=== PATIENT | male | born 1940 | race Caucasian/White ===

== ENCOUNTER → 2017-06-23 | Outpatient (CLI) | payer OTHER | LOC: HYPER 07:04 | DX: I87.331 Chronic venous hypertension (idiopathic) with ulcer and inflammation of right lower extremity (principal); L97.811 Non-pressure chronic ulcer of other part of right lower leg limited to breakdown of skin; R60.9 Edema, unspecified; I48.91 Unspecified atrial fibrillation; M86.68 Other chronic osteomyelitis, other site; Z87.891 Personal history of nicotine dependence; Z72.89 Other problems related to lifestyle ==

== ENCOUNTER → 2018-01-13 | Outpatient (CLI) | payer OTHER | LOC: HYPER 12-31 15:20 | DX: I87.331 Chronic venous hypertension (idiopathic) with ulcer and inflammation of right lower extremity (principal); L97.811 Non-pressure chronic ulcer of other part of right lower leg limited to breakdown of skin; R60.9 Edema, unspecified; I48.91 Unspecified atrial fibrillation; M86.68 Other chronic osteomyelitis, other site; Z87.891 Personal history of nicotine dependence; Z72.89 Other problems related to lifestyle ==

== ENCOUNTER → 2019-01-19 | Outpatient (CLI) | payer OTHER | LOC: HYPER 01-12 08:36 | DX: I87.331 Chronic venous hypertension (idiopathic) with ulcer and inflammation of right lower extremity (principal); L97.811 Non-pressure chronic ulcer of other part of right lower leg limited to breakdown of skin; I87.2 Venous insufficiency (chronic) (peripheral); L02.512 Cutaneous abscess of left hand; L84 Corns and callosities; I48.91 Unspecified atrial fibrillation; Z96.643 Presence of artificial hip joint, bilateral; Z96.651 Presence of right artificial knee joint; Z87.891 Personal history of nicotine dependence ==

== ENCOUNTER → 2019-07-20 | Outpatient (CLI) | payer OTHER | LOC: HYPER 06:46 | DX: I87.331 Chronic venous hypertension (idiopathic) with ulcer and inflammation of right lower extremity (principal); L97.811 Non-pressure chronic ulcer of other part of right lower leg limited to breakdown of skin; L02.512 Cutaneous abscess of left hand; L84 Corns and callosities; I48.91 Unspecified atrial fibrillation; R60.9 Edema, unspecified; Z96.643 Presence of artificial hip joint, bilateral; Z96.651 Presence of right artificial knee joint; Z87.891 Personal history of nicotine dependence ==

== ENCOUNTER → 2021-02-15 | Outpatient (CLI) | payer OTHER | LOC: HYPER 08:56 | PROVIDERS: ATTEND Emergency Medicine | DX: I87.331 Chronic venous hypertension (idiopathic) with ulcer and inflammation of right lower extremity (principal); L97.812 Non-pressure chronic ulcer of other part of right lower leg with fat layer exposed; L84 Corns and callosities; R60.9 Edema, unspecified; L02.512 Cutaneous abscess of left hand; I48.91 Unspecified atrial fibrillation; M19.90 Unspecified osteoarthritis, unspecified site; Z87.891 Personal history of nicotine dependence; Z96.643 Presence of artificial hip joint, bilateral; Z96.651 Presence of right artificial knee joint ==

== ENCOUNTER → 2021-08-23 | Outpatient (CLI) | payer OTHER | LOC: HYPER 07:24 | PROVIDERS: ATTEND Emergency Medicine | DX: I87.331 Chronic venous hypertension (idiopathic) with ulcer and inflammation of right lower extremity (principal); L97.812 Non-pressure chronic ulcer of other part of right lower leg with fat layer exposed; L02.512 Cutaneous abscess of left hand; I10 Essential (primary) hypertension; R60.9 Edema, unspecified; I48.91 Unspecified atrial fibrillation; M19.90 Unspecified osteoarthritis, unspecified site; Z87.891 Personal history of nicotine dependence; Z96.643 Presence of artificial hip joint, bilateral; Z96.651 Presence of right artificial knee joint; Z98.890 Other specified postprocedural states; Z79.01 Long term (current) use of anticoagulants; Z79.899 Other long term (current) drug therapy ==